=== PATIENT | female | born 1985 | race Caucasian/White ===

== ENCOUNTER 2018-08-23 07:54 | Emergency (ER) | payer OTHER ==
[~2018-08-23] VITALS: Ht 154.9 cm; Wt 65.9 kg
[~2018-08-23 07:54] MED LIST: COUMADIN 77.5 MG/TAB PO; INDERAL 10MG10 MG PO; NORCO 325 MG-51 TAB PO
[2018-08-23 07:57] VITALS: BP 138/87; TEMP 96.9
[2018-08-23] MEDS ORDERED: TYLENOL 500MG500 MG PO (08:06)
[2018-08-23 08:54] VITALS: PULSE 77
== END 2018-08-23 08:54 | disposition home or self-care (01) ==
LOC: COL.ER 07:54
DX: S83.91XA Sprain of unspecified site of right knee, initial encounter (principal); Z79.01 Long term (current) use of anticoagulants; W00.0XXA Fall on same level due to ice and snow, initial encounter
CPT/HCPCS: L1846

== ENCOUNTER 2018-08-26 09:07 | Outpatient (RCR) | payer OTHER ==
[~2018-08-26 09:07] MED LIST changes: +TYLENOL 500MG500 MG PO
== END 2018-11-24 | disposition home or self-care (01) ==
LOC: WSOH
DX: S80.01XA Contusion of right knee, initial encounter (principal); M22.91 Unspecified disorder of patella, right knee; W00.0XXA Fall on same level due to ice and snow, initial encounter; Y99.0 Civilian activity done for income or pay; Z79.01 Long term (current) use of anticoagulants; Z79.899 Other long term (current) drug therapy